=== PATIENT | male | born 1995 | race Caucasian/White ===

== ENCOUNTER 2019-10-07 19:41 | Emergency (ER) | payer MEDICAID ==
[~2019-10-07] VITALS: Ht 170.2 cm; Wt 74.8 kg
[2019-10-07 20:09] VITALS: Ht 170.2 cm; Wt 74.8 kg
[2019-10-07 21:19] LABS: CALCIUM 8.4 mg/dL (8.5-10.1); CARBON DIOXIDE 24.2 mmol/L (21-32); CHLORIDE SERUM 108 mmol/L (98-107); CREATININE SERUM 1.4 mg/dL (0.7-1.3); GFR1 > 60 mL/min; GLUCOSE SERUM 96 mg/dL (74-106); POTASSIUM SERUM 3.8 mmol/L (3.5-5.1); SODIUM SERUM 145 mmol/L (136-145)
[2019-10-07 21:23] LABS: ALKALINE PHOSPHATASE 91 U/L (46-116); ALT/SGPT 33 U/L (16-63); AST/SGOT 28 U/L (15-37); BILIRUBIN TOTAL 0.2 mg/dL (0.20-1.00); TOTAL PROTEIN, SERUM 7.6 g/dL (6.4-8.2)
[2019-10-07 21:25] LABS: BASOPHIL % 1.4 % (0-2); PLATELET COUNT 233 x10^3mcL (130-400); RED CELL DISTRIBUTION WIDTH 13.3 % (11.5-14.5)
[2019-10-07 23:14] VITALS: BP 123/45
== END 2019-10-07 23:15 | disposition other institution (70) ==
LOC: ED 19:41
PROVIDERS: Emergency Medicine
DX: S00.81XA Abrasion of other part of head, initial encounter (principal); R41.0 Disorientation, unspecified; F10.129 Alcohol abuse with intoxication, unspecified; F12.10 Cannabis abuse, uncomplicated; X58.XXXA Exposure to other specified factors, initial encounter; Y93.89 Activity, other specified; Y92.89 Other specified places as the place of occurrence of the external cause; Y99.8 Other external cause status
CPT/HCPCS: G0480; J1630; J2060; Q0092

== ENCOUNTER 2019-10-07 19:41 | Emergency (ER) | payer OTHER | END 2019-10-07 23:15 | disposition other institution (70) | LOC: ED 19:41 | DX: Z02.89 Encounter for other administrative examinations (principal) ==

== ENCOUNTER 2020-06-22 19:26 | Emergency (ER) | payer OTHER | END 2020-06-22 22:26 | LOC: ED 19:26 | DX: Z02.89 Encounter for other administrative examinations (principal) ==

== ENCOUNTER 2020-06-22 19:26 | Emergency (ER) | payer MEDICAID ==
[~2020-06-22] VITALS: Ht 167.6 cm; Wt 86.2 kg
[2020-06-22 19:31] VITALS: Ht 167.6 cm; Wt 86.2 kg
[2020-06-22 22:26] VITALS: BP 140/88
== END 2020-06-22 22:26 ==
LOC: ED 19:26
DX: S02.831A Fracture of medial orbital wall, right side, initial encounter for closed fracture (principal); S61.215A Laceration without foreign body of left ring finger without damage to nail, initial encounter; S00.83XA Contusion of other part of head, initial encounter; Y04.8XXA Assault by other bodily force, initial encounter; Y93.89 Activity, other specified; Y92.89 Other specified places as the place of occurrence of the external cause; Y99.8 Other external cause status
CPT/HCPCS: J2001

== ENCOUNTER 2020-06-26 17:02 | Emergency (ER) | payer MEDICAID ==
[~2020-06-26] VITALS: Ht 177.8 cm; Wt 97.5 kg
[2020-06-26 17:09] VITALS: Ht 177.8 cm; Wt 97.5 kg
[2020-06-26] MEDS ORDERED: ANTIBIOTIC O500 U/GM TOP (17:20)
[2020-06-26 17:32] VITALS: BP 141/64
== END 2020-06-26 17:33 | disposition home or self-care (01) ==
LOC: ED 17:02
DX: S61.215D Laceration without foreign body of left ring finger without damage to nail, subsequent encounter (principal); X58.XXXD Exposure to other specified factors, subsequent encounter

== ENCOUNTER 2020-06-30 09:21 | Emergency (ER) | payer MEDICAID ==
[~2020-06-30] VITALS: Ht 177.8 cm; Wt 97.1 kg
[~2020-06-30 09:21] MED LIST: ANTIBIOTIC O500 U/GM TOP
[2020-06-30 09:26] VITALS: BP 134/71; Ht 177.8 cm; Wt 97.1 kg
== END 2020-06-30 10:37 | disposition home or self-care (01) ==
LOC: ED 09:21
DX: S61.213D Laceration without foreign body of left middle finger without damage to nail, subsequent encounter (principal); X58.XXXD Exposure to other specified factors, subsequent encounter